=== PATIENT | female | born 1970 | race Caucasian/White ===

== ENCOUNTER 2017-06-03 08:51 | Emergency (ER) | payer OTHER ==
[~2017-06-03] VITALS: Ht 172.7 cm; Wt 64.0 kg
[~2017-06-03 08:51] MED LIST: Z.0.NO CURRENT MEDS
[2017-06-03 08:53] VITALS: BP 124/72; PULSE 84; RESP 17; TEMP 98.1; O2SAT 98
[2017-06-03] MEDS ORDERED: IBUP-232 PO (09:03)
[2017-06-03] MEDS ORDERED: MAGICADU2 SWISH-SPIT (09:03)
[2017-06-03] MEDS ORDERED: PENI500T PO (09:03)
[2017-06-03] MEDS ORDERED: PENICILLIN V POTASSIUM 500 MG TAB PO ONE (09:15)
[2017-06-03] MEDS ORDERED: KETOROLAC TROMETHAMINE 60 MG/2 ML (IM) VIAL IM ONE (09:15)
--- NOTE | 2017-06-03 09:18 | PD ---
HPI Chief Complaint: Oral / Dental Pain or Problem Time Seen by Provider: 08:59 Travel History International Travel<30 days: No Contact w/Intl Traveler<30days: No Traveled to known affect area: No History of Present Illness HPI 46-year-old female presents emergency department with 3 day history of worsening right lower jaw pain and swelling. Patient has poor dentition. The tinnitus seems to be the #29 tooth. Patient is missing #30, #31, and #32. Patient denies fever or chills. Pain is 8 out of 10. It is sensitive to hot and cold. She has no difficulty swallowing. She has no known drug allergies. PFSH Past Medical History Medical History: Denies Significant Hx Tetanus Vaccination: < 5 Years ?: Not LMP: 04/2017 : 2 Para: 1 Ectopic : Yes Ovarian Cysts: Yes Past Surgical History Gynecologic Surgery: Yes (laproscopy with partial oophrectomy) Oral Surgery: Yes Other Surgery: Yes (septum deviated surg to correct) Social History Alcohol Use: No Tobacco Use: Yes (1/2ppd) Substance Use: No Allergies-Medications (Allergen,Severity, Reaction): Coded Allergies: No Known Allergies (Verified Adverse Reaction, Unknown, 06/03/17) Reported Meds & Prescriptions Reported Meds & Active Scripts Active Magic Mouthwash Adult Liq (Multi-Ingredient Mouthwash/Gargle) 120 Ml Susp 10 Ml SWISH-SPIT Q2HR Each 5mL contains: Nystatin 200,000units, Diphenhydramine 4.25mg, Viscous Lidocaine 10mg, Jaime syrup 0.8 mL Ibuprofen 600 Mg Tab 600 Mg PO Q6H PRN Penicillin V Potassium 500 Mg Tab 500 Mg PO Q6H 10 Days Reported No Current Meds (Miscellaneous Medication) [facility] [place] Review of Systems Except as stated in HPI: all other systems reviewed are Neg General / Constitutional: No: Fever Eyes: No: Visual changes HENT: Positive: Dental Difficulties, Earache, No: Headaches, Vertigo, Lightheadedness, Sore Throat, Rhinitis, Rhinorrhea, Congestion, Nosebleed, Neck Stiffness, Neck Pain, Gingival Bleeding, Ear Discharge Cardiovascular: No: Chest Pain or Discomfort Respiratory: No: Shortness of Breath Gastrointestinal: No: Abdominal Pain Genitourinary: No: Dysuria Musculoskeletal: No: Pain Skin: No Rash Neurologic: No: Weakness Psychiatric: No: Depression Endocrine: No: Polydipsia Hematologic/Lymphatic: No: Easy Bruising Physical Exam Narrative GENERAL: Patient appears in moderate distress. SKIN: Warm and dry. Normal color. Normal turgor. No rash. No erythema HEAD: Atraumatic. Normocephalic. EYES: Pupils equal and round. No scleral icterus. No injection or drainage. ENT: No nasal bleeding or discharge. Mucous membranes pink and moist. TMs are clear bilaterally. Patient has poor dentition with obvious caries in the #29 tooth. Localized swelling is noted to the outer gingiva of the right lower jaw. No active drainage is noted. Pharynx is normal. Airways patent. No signs Ranjeet's angina. NECK: Trachea midline. Supple nontender without significant lymphadenopathy. CARDIOVASCULAR: Regular rate and rhythm. RESPIRATORY: No accessory muscle use. Clear to auscultation. Breath sounds equal bilaterally. GASTROINTESTINAL: Abdomen soft, non-tender, nondistended. Hepatic and splenic margins not palpable. MUSCULOSKELETAL: Extremities without clubbing, cyanosis, or edema. No obvious deformities. NEUROLOGICAL: Awake and alert. No obvious cranial nerve deficits. Motor grossly within normal limits. Five out of 5 muscle strength in the arms and legs. Normal speech. PSYCHIATRIC: Appropriate mood and affect; insight and judgment normal. Data Data Last Documented VS Vital Signs Date Time Temp Pulse Resp B/P (MAP) Pulse Ox O2 Delivery O2 Flow Rate FiO2 06/03/17 08:53 98.1 84 17 124/72 (89) 98 Orders Orders Ketorolac Inj (Toradol Inj) (06/03/17 09:15) Penicillin V Potassium (Veetids) (06/03/17 09:15) [facility] Medical Decision Making Medical Screen Exam Complete: Yes Emergency Medical Condition: Yes Differential Diagnosis Dental caries. Dental pain. Dental abscess. Narrative Course Patient is given first dose of Pen-Vee K 1000 mg p.o. Patient is given Toradol 60 mg IM. Patient continued on Pen-Vee K 500 4 times daily #40. Patient continued on ibuprofen 600 mg 4 times daily #40 Patient is given Magic mouthwash to be used every 2 hours as needed dental pain 120 mL's with 1 refill. Patient to follow-up with dentist as discussed. Patient can return if symptoms worsen. Diagnosis Primary Impression: Dental abscess Patient Instructions: General Instructions Additional Instructions: Patient is given first dose of Pen-Vee K 1000 mg p.o. Patient is given Toradol 60 mg IM. Patient continued on Pen-Vee K 500 4 times daily #40. Patient continued on ibuprofen 600 mg 4 times daily #40 Patient is given Magic mouthwash to be used every 2 hours as needed dental pain 120 mL's with 1 refill. Patient to follow-up with dentist as discussed. Patient can return if symptoms worsen. Med/Other Pt SpecificInfo: Prescription(s) given Scripts Ysuzcxiz-Masrizivnfqepni-Zkvyncwmo Liq (Magic Mouthwash Adult Liq) 120 Ml Susp 10 ML SWISH-SPIT Q2HR for Mouth sores, #120 ML 1 Refill Each 5mL contains: Nystatin 200,000units, Diphenhydramine 4.25mg, Viscous Lidocaine 10mg, Jaime syrup 0.8 mL Prov: Janelle Wilkerson MD 06/03/17 Ibuprofen (Ibuprofen) 600 Mg Tab 600 MG PO Q6H Y for Pain/Inflammation, #40 TAB 0 Refills Prov: Janelle Wilkerson MD 06/03/17 Penicillin V Potassium (Penicillin V Potassium) 500 Mg Tab 500 MG PO Q6H for Infection for 10 Days, #40 TAB 0 Refills Prov: Janelle Wilkerson MD 06/03/17 Disposition: 01 DISCHARGE HOME Condition: Stable Howie Yoder Jun 03, 2017 09:18
== END 2017-06-03 09:51 | disposition home or self-care (01) ==
LOC: NEPD 08:51
DX: K04.7 Periapical abscess without sinus (principal)
CPT/HCPCS: 96372; 99283; J1885